=== PATIENT | female | born 1995 | race Caucasian/White ===

== ENCOUNTER 2020-05-22 12:26 | Emergency (ER) | payer MEDICAID ==
[~2020-05-22] VITALS: Ht 160 cm; Wt 56.8 kg
[2020-05-22] MEDS ORDERED: IV NORMAL SALINE 1000ML BAG 1,000 ML IV SCH (13:00)
[2020-05-22] MEDS ORDERED: ONDANSETRON PF 4 MG/2 ML VIAL. IVP ONE (13:00)
[2020-05-22] MEDS ORDERED: fentaNYL PF VIAL 100 MCG/2 ML VIAL IVP ONE ×2 (13:00→14:30)
--- NOTE | 2020-05-22 13:07 | PHYS DOC ---
Past Medical History Past Medical History: Other Additional Past Medical Histor: IBS,ABD HERNIA, Past Surgical History: Appendectomy Smoking Status: Current Every Day Smoker Alcohol Use: None General Adult EDM: Chief Complaint: ABDOMINAL PAIN HPI: HPI: Patient is a 25 year old female who presents with bilateral lower abdominal cramping with diarrhea and chills that started last night. Denies any blood in her stools. Denies vomiting but states she does have some nausea. Rates her pain a 6 out of 10. Patient denies drug use, shortness of breath, chest pain, fever, diarrhea, urinary symptoms, back pain, dizziness, headache, cough. She has a history of IBS, appendectomy, abdominal hernia, smoker. Review of Systems: Review of Systems: Constitutional: Denies fever. + chills. [] Eyes: Denies change in visual acuity. [] HENT: Denies nasal congestion or sore throat. [] Respiratory: Denies cough or shortness of breath. [] Cardiovascular: Denies chest pain or edema. [] GI: + abdominal pain, +nausea, denies vomiting, bloody stools. +diarrhea. [] : Denies dysuria. [] Musculoskeletal: Denies back pain or joint pain. [] Integument: Denies rash. [] Neurologic: Denies headache, focal weakness or sensory changes. [] Endocrine: Denies polyuria or polydipsia. [] Lymphatic: Denies swollen glands. [] Psychiatric: Denies depression or anxiety. [] Heart Score: Risk Factors: Risk Factors: DM, Current or recent (<one month) smoker, HTN, HLP, family history of CAD, obesity. Risk Scores: Score 0 - 3: 2.5% MACE over next 6 weeks - Discharge Home Score 4 - 6: 20.3% MACE over next 6 weeks - Admit for Clinical Observation Score 7 - 10: 72.7% MACE over next 6 weeks - Early Invasive Strategies Current Medications: Current Medications Medications (Trade) Dose Ordered Sig/Rodriguez Start Time Stop Time Status Last Admin Dose Admin Fentanyl Citrate (Fentanyl 2ml Vial) 50 mcg 1X ONCE 05/22/20 13:00 05/22/20 13:04 DC Ondansetron HCl (Zofran) 4 mg 1X ONCE 05/22/20 13:00 05/22/20 13:04 DC Sodium Chloride 1,000 ml @ 1,000 mls/hr Q1H 05/22/20 13:00 05/22/20 13:59 Allergies: Allergies: Allergies Coded Allergies Type Severity Reaction Last Updated Verified Iodinated Contrast Media Allergy Severe Anaphylaxis 05/22/20 Yes Physical Exam: PE: Constitutional: Well developed, well nourished, no acute distress, non-toxic appearance. [] HENT: Normocephalic, atraumatic, bilateral external ears normal, oropharynx moist, no oral exudates, nose normal. [] Eyes: PERRLA, EOMI, conjunctiva normal, no discharge. [] Neck: Normal range of motion, no tenderness, supple, no stridor. [] Cardiovascular:Heart rate regular rhythm, no murmur [] Lungs & Thorax: Bilateral breath sounds clear to auscultation [] Abdomen: Bowel sounds normal, soft, bilateral lower tenderness, no masses, no pulsatile masses. [] Skin: Warm, dry, no erythema, no rash. [] Back: No tenderness, no CVA tenderness. [] Extremities: No tenderness, no cyanosis, no clubbing, ROM intact, no edema. [] Neurologic: Alert and oriented X 3, normal motor function, normal sensory function, no focal deficits noted. [] Psychologic: Affect normal, judgement normal, mood normal. [] Current Patient Data: Vital Signs: Vital Signs Date Time Temp Pulse Resp B/P (MAP) Pulse Ox O2 Delivery O2 Flow Rate FiO2 05/22/20 12:56 97.5 87 18 120/58 (78) 98 Room Air 97.5 EKG: EKG: [] Radiology/Procedures: Radiology/Procedures: [] Impression: [facility] [address] [place], [place] [id number] IMAGING REPORT Signed PATIENT: GARY JONES ACCOUNT: [id number] : 1995 LOCATION: ER AGE: 25 SEX: F EXAM STATUS: REG ER ORD. PHYSICIAN: KISHOR HERNANDEZ APRN REASON: abd pain, diarrhea, nausea, hx ibs PROCEDURE: CT ABDOMEN PELVIS WO CONTRAST CT abdomen and pelvis without contrast PQRS statement: CT scans at this facility use dose reduction including either automated exposure control, iterative reconstructions, and /or weight based radiation dosing via mA and kV modification when appropriate to reduce radiation dose to as low as reasonably achievable. HISTORY: Abdominal pain, diarrhea and nausea. Abdomen findings: 4 mm nodule right lower lobe abutting the diaphragm image 8. 2 mm right middle lobe nodule image 12. Liver, gallbladder, spleen, adrenal glands, pancreas and kidneys are unremarkable. No urinary calculi or hydronephrosis. 3 cm supraumbilical ventral fatty abdominal wall hernia. There is a large volume of stool. Appendectomy. No small bowel obstruction. No inflammatory changes in GI tract. No abdominal fluid. Pelvis findings: Right ovary obscured by pelvic bowel loops. Left ovary, uterus, and bladder are unremarkable. No bladder calculi. Moderate volume of stool within the rectosigmoid. Bones are unremarkable. IMPRESSION: 1. Constipation with a large volume of solid stool throughout the large bowel. 2. The appendix is surgically absent. 3. No urinary calculi. 4. 2 small solid nodules of the right lung base largest measuring 4 mm. If the patient has risk factors for malignancy optional CT follow-up in 12 months would be advised, otherwise no follow-up is necessary. Electronically signed by: Jennifer Rodríguez MD (05/22/2020 2:07 PM) [id number] DICTATED and SIGNED BY: JENNIFER RODRÍGUEZ MD DATE: 05/22/20 [id number] 0 Course & Med Decision Making: Course & Med Decision Making Pertinent Labs and Imaging studies reviewed. (See chart for details) See HPI. Abdomen soft but tender to lower bilateral lower abdominal. Skin pink warm and dry. Ambulatory with steady gait. Speaks in full complete sentences. Vital signs within normal limits. IMPRESSION: 1. Constipation with a large volume of solid stool throughout the large bowel. 2. The appendix is surgically absent. 3. No urinary calculi. 4. 2 small solid nodules of the right lung base largest measuring 4 mm. If the patient has risk factors for malignancy optional CT follow-up in 12 months would be advised, otherwise no follow-up is necessary. Urinalysis shows nitrites. CT shows the above. She is given Rocephin in the ED. She is given another dose of pain medication. She will also be given magnesium citrate for constipation. [] Awilda Disclaimer: Awilda Disclaimer: This electronic medical record was generated, in whole or in part, using a voice recognition dictation system. Departure Departure Impression: Primary Impression: UTI (urinary tract infection) Qualified Codes: N39.0 - Urinary tract infection, site not specified Additional Impressions: Constipation Qualified Codes: K59.00 - Constipation, unspecified Incidental pulmonary nodule Disposition: HOME SELF CARE/HOMELESS Condition: STABLE Referrals: UNKNOWN PCP NAME (PCP) Patient Instructions: Constipation, Adult, Incidental Abnormal Radiological Finding, Urinary Tract Infection Additional Instructions: Follow-up with primary care provider if needed. Drink plenty of fluids. Take medication with food and as prescribed. Take the magnesium citrate tonight when you get home and stay home in your bathroom. Follow-up in the next 6 to 12 months on the pulmonary nodule that is in your right lower lung to make sure does not get any bigger. Stop smoking. Scripts Phenazopyridine Hcl (PYRIDIUM) 100 Mg Tablet 1 TAB PO TID for urinary discomfort for 3 Days, #9 TAB 0 Refills Prov: KISHOR HERNANDEZ [employer] 05/22/20 Ibuprofen (IBUPROFEN) 600 Mg Tablet 600 MG PO PRN Q6HRS PRN for INFLAMMATION, #25 TAB Prov: KISHOR HERNANDEZ [employer] 05/22/20 Magnesium Citrate (MAGNESIUM CITRATE) 296 Ml Solution 296 ML PO ONCE, #296 ML Prov: KISHOR HERNANDEZ [employer] 05/22/20 Cephalexin (KEFLEX) 500 Mg Capsule 1 CAP PO BID for 7 Days, #14 CAP 0 Refills Prov: KISHOR HERNANDEZ [employer] 05/22/20 Ondansetron (ONDANSETRON ODT) 4 Mg Tab.rapdis 1 TAB PO PRN Q6-8HRS, #16 TAB Prov: KISHOR HERNANDEZ 05/22/20 KISHOR HERNANDEZ APRN May 22, 2020 13:07
[2020-05-22 13:28] LABS: BILIRUBIN,URINE NEGATIVE (NEG); CLARITY,URINE CLOUDY; COLOR,URINE YELLOW; NITRITE,URINE POSITIVE (NEG); PH,URINE 5.5 (<5.0-8.0); PROTEIN,URINE 30 mg/dL (NEG-TRACE); UROBILINOGEN,URINE 0.2 mg/dL (0.2 mg/dL)
[2020-05-22 13:32] LABS: U PREG PATIENT NEGATIVE (NEG)
[2020-05-22 13:34] LABS: AMPHETAMINE/METHAMPHETAMINE NEG (NEG); BARBITURATES NEG (NEG); BENZODIAZEPINES NEG (NEG); CANNABINOIDS POS (NEG); COCAINE NEG (NEG); METHADONE NEG (NEG); OPIATES NEG (NEG); PHENCYCLIDINE NEG (NEG)
[2020-05-22 13:35] LABS: BASO # 0.1 x10^3/uL (0.0-0.2); BASO % 1 % (0-3); EOS # 0.2 x10^3/uL (0.0-0.7); EOS % 3 % (0-3); HEMATOCRIT 31.4 % (36.0-47.0); HEMOGLOBIN 9.9 g/dL (12.0-15.5); LYMPH # 1.5 x10^3/uL (1.0-4.8); LYMPH % 22 % (24-48); MEAN CORPUSCULAR HEMOGLOBIN 21 pg (25-35); MEAN CORPUSCULAR HGB CONC 32 g/dL (31-37); MEAN CORPUSCULAR VOLUME 65 fL (79-100); MONO # 0.3 x10^3/uL (0.0-1.1); MONO % 4 % (0-9); NEUT # 4.8 x10^3/uL (1.8-7.7); NEUT % 71 % (31-73); PLATELET COUNT 300 x10^3/uL (140-400); RED BLOOD COUNT 4.82 x10^6/uL (3.50-5.40); RED CELL DISTRIBUTION WIDTH 18.4 % (11.5-14.5); WHITE BLOOD COUNT 6.7 x10^3/uL (4.0-11.0)
[2020-05-22 13:51] LABS: BACTERIA,URINE MANY /HPF (0-FEW); WBC,URINE >40 /HPF (0-4)
[2020-05-22 13:52] LABS: CALCIUM 8.7 mg/dL (8.5-10.1); CREATININE 0.8 mg/dL (0.6-1.0); GFR 86.7; POTASSIUM 3.6 mmol/L (3.5-5.1)
[2020-05-22 13:59] LABS: ALBUMIN 3.6 g/dL (3.4-5.0); ALBUMIN/GLOBULIN RATIO 0.9 (1.0-1.7); TOTAL BILIRUBIN 0.5 mg/dL (0.2-1.0); TOTAL PROTEIN 7.7 g/dL (6.4-8.2)
--- NOTE | 2020-05-22 14:10 | RAD ---
CT abdomen and pelvis without contrast PQRS statement: CT scans at this facility use dose reduction including either automated exposure control, iterative reconstructions, and /or weight based radiation dosing via mA and kV modification when appropriate to reduce radiation dose to as low as reasonably achievable. HISTORY: Abdominal pain, diarrhea and nausea. Abdomen findings: 4 mm nodule right lower lobe abutting the diaphragm image 8. 2 mm right middle lobe nodule image 12. Liver, gallbladder, spleen, adrenal glands, pancreas and kidneys are unremarkable. No urinary calculi or hydronephrosis. 3 cm supraumbilical ventral fatty abdominal wall hernia. There is a large volume of stool. Appendectomy. No small bowel obstruction. No inflammatory changes in GI tract. No abdominal fluid. Pelvis findings: Right ovary obscured by pelvic bowel loops. Left ovary, uterus, and bladder are unremarkable. No bladder calculi. Moderate volume of stool within the rectosigmoid. Bones are unremarkable. IMPRESSION: 1. Constipation with a large volume of solid stool throughout the large bowel. 2. The appendix is surgically absent. 3. No urinary calculi. 4. 2 small solid nodules of the right lung base largest measuring 4 mm. If the patient has risk factors for malignancy optional CT follow-up in 12 months would be advised, otherwise no follow-up is necessary. Electronically signed by: Go Ronquillo MD (05/22/2020 2:07 PM) [id number]
[2020-05-22] MEDS ORDERED: cefTRIAXone IV Push 1 GM VIAL. IVP ONE (14:15)
[2020-05-22] MEDS ORDERED: IV NORMAL SALINE 1000ML BAG 1,000 ML IV ONE (14:15)
[2020-05-22] MEDS ORDERED: CEPH-264 PO (14:18)
[2020-05-22] MEDS ORDERED: MAGN296S68 PO (14:18)
[2020-05-22] MEDS ORDERED: PHEN100T82 PO (14:18)
[2020-05-22] MEDS ORDERED: IBUP-1007 PO (14:18)
[2020-05-22] MEDS ORDERED: ONDA4TAB12 PO (14:18)
[2020-05-22 14:40] VITALS: BP 114/68
[2020-05-22 14:49] LABS: ANISOCYTOSIS SLIGHT; HYPOCHROMIA MARKED; MICROCYTOSIS MARKED; PLT ESTIMATE ADEQUATE (ADEQUATE); POIKILOCYTOSIS SLIGHT
[2020-05-22 14:50] LABS: OVALOCYTES PRESENT
== END 2020-05-22 14:44 | disposition home or self-care (01) ==
LOC: ER 12:26
DX: N39.0 Urinary tract infection, site not specified (principal); K59.00 Constipation, unspecified; K58.9 Irritable bowel syndrome, unspecified; F17.200 Nicotine dependence, unspecified, uncomplicated; Z90.89 Acquired absence of other organs; Z91.041 Radiographic dye allergy status
CPT/HCPCS: 36415; 74176; 80053; 80307; 81001; 81025; 83690; 85025; 87086; 96361; 96374; 96375; 96376; 99284; J0696; J2405; J3010; J7030; 87077; 87186

== ENCOUNTER 2021-03-25 00:15 | Emergency (ER) | payer MEDICAID ==
[~2021-03-25] VITALS: Ht 160 cm; Wt 59.0 kg
[~2021-03-25 00:15] MED LIST: CEPH-264 PO; IBUP-1007 PO; MAGN296S68 PO; ONDA4TAB12 PO; PHEN100T82 PO
[2021-03-25 02:38] LABS: U PREG PATIENT NEGATIVE (NEG)
--- NOTE | 2021-03-25 03:05 | RAD ---
EXAM: 3 views of the right wrist DATE: 03/25/2021 2:45 AM INDICATION: Reason: fall, wrist pain / Spl. Instructions: / History: COMPARISON: No Prior FINDINGS/ IMPRESSION: Acute fracture of the distal radius with cortical disruption dorsally and moderate associated soft ti ssue swelling. Subtle lucency through the dorsal distal ulna is also suspicious for nondisplaced frac ture. Joint spaces are preserved without significant degenerative/proliferative change. No significan t soft tissue swelling. Electronically signed by: Loco Ken MD (03/25/2021 3:02 AM) SINDI
--- NOTE | 2021-03-25 03:07 | RAD ---
EXAM: CT HEAD WITHOUT IV CONTRAST CLINICAL HISTORY: Reason: fall from 8 ft, LOC, neck and back pain / Spl. Instructions: / History: COMPARISON: None. TECHNIQUE: Routine CT of the head without contrast. Soft tissues and bone windows were reviewed. PQRS compliance statement - One or more of the following individualized dose reduction techniques wer e utilized for this study: 1. Automated exposure control 2. Adjustment of the mA and/or kV according to patient size 3. Use of iterative reconstruction technique FINDINGS: There is no evidence of hemorrhage, mass or extra-axial fluid collection. Huertas-white differentiation is maintained with no evidence of edema. There is no mass effect or shift of the intracranial structures. The ventricles, basilar cisterns and cortical sulci are normal in size and configuration for the krish ents stated age. The cerebellum and brainstem are unremarkable. The calvarium demonstrates no evidence of fracture or focal lesion. There is normal aeration of the visualized paranasal sinuses and mastoid air cells. The visualized portions of the orbits are normal. IMPRESSION: No evidence for acute intracranial process. EXAM: CT CERVICAL SPINE WITHOUT IV CONTRAST CLINICAL HISTORY: Reason: fall from 8 ft, LOC, neck and back pain / Spl. Instructions: / History: COMPARISON: None available. TECHNIQUE: Helical CT of the cervical spine was performed. Axial, coronal and sagittal reformatted im ages were also performed. PQRS compliance statement - One or more of the following individualized dose reduction techniques wer e utilized for this study: 1. Automated exposure control 2. Adjustment of the mA and/or kV according to patient size 3. Use of iterative reconstruction technique FINDINGS: Vertebral body heights are preserved. No spondylolisthesis. Intervertebral disc heights are preserved. IMPRESSION: No acute cervical spine fracture or subluxation. Electronically signed by: Loco Ken MD (03/25/2021 3:05 AM) SINDI
--- NOTE | 2021-03-25 03:13 | RAD ---
EXAM: CT Chest, Abdomen and Pelvis without IV contrast CLINICAL HISTORY: Reason: fall from 8 ft, LOC, neck and back pain / Spl. Instructions: / History: COMPARISON: None. TECHNIQUE: Helical CT of the chest, abdomen and pelvis was performed without intravenous contrast. Ax ial, coronal and sagittal reformatted images were generated. ---PQRS compliance statement - One or more of the following individualized dose reduction techniques were utilized for this study: 1. Automated exposure control 2. Adjustment of the mA and/or kV according to patient size 3. Use of iterative reconstruction technique--- FINDINGS: Lack of intravenous contrast limits evaluation of solid organs, vasculature, and lymph nodes. Chest: Visualized thyroid is unremarkable. Prominent axillary lymph nodes likely reactive. No mediastinal or hilar lymphadenopathy. Heart is not enlarged. No pericardial effusion. Dependent opacities bilaterally likely atelectasis. No suspicious lung nodule or mass. Abdomen and Pelvis: No focal liver lesion. Liver is enlarged measuring 18 cm. Gallbladder is normal. No biliary ductal di latation. Spleen is enlarged. Adrenal glands are normal. Pancreas is unremarkable. No focal renal les ion. No hydronephrosis. No hydroureter. Bladder is partially distended but otherwise unremarkable. Th ere has been an appendectomy. Moderate colonic stool content. No small or large bowel dilatation. No bowel obstruction. No abdominal or pelvic lymphadenopathy. No abdominal or pelvic ascites. Small fat- containing periumbilical hernia.. Bones: No aggressive osseous lesion is seen. IMPRESSION: No evidence for acute thoracic, abdominal or pelvic trauma. Moderate colonic stool content. No bowel obstruction. Borderline hepatomegaly. Splenomegaly. Electronically signed by: Loco Ken MD (03/25/2021 3:11 AM) SINDI
--- NOTE | 2021-03-25 03:17 | PHYS DOC ---
Past Medical History Past Medical History: Other Additional Past Medical Histor: IBS,ABD HERNIA, Past Surgical History: Appendectomy, Tonsillectomy Smoking Status: Current Every Day Smoker Alcohol Use: None General Adult EDM: Chief Complaint: MULTIPLE TRAUMA/FALL HPI: HPI: Patient is a 25 year old female who presents with neck pain, back pain, and right wrist pain after a fall from approximately 8 feet. Was leaning against a barrier and toppled over. Did strike her head. Unsure of loss of consciousness. No blood thinning medications. No numbness, tingling, weakness. She does have bruising of her wrist. She is concerned that she did break her wrist. Review of Systems: Review of Systems: Constitutional: Denies fever or chills. [] Eyes: Denies change in visual acuity. [] HENT: Denies nasal congestion or sore throat. [] Respiratory: Denies cough or shortness of breath. [] Cardiovascular: Denies chest pain or edema. [] GI: Denies abdominal pain, nausea, vomiting, bloody stools or diarrhea. [] : Denies dysuria. [] Musculoskeletal: Back pain, neck pain, right wrist pain Integument: Denies rash. [] Neurologic: Denies headache, focal weakness or sensory changes. [] Endocrine: Denies polyuria or polydipsia. [] Lymphatic: Denies swollen glands. [] Psychiatric: Denies depression or anxiety. [] Heart Score: C/O Chest Pain: No Risk Factors: Risk Factors: DM, Current or recent (<one month) smoker, HTN, HLP, family history of CAD, obesity. Risk Scores: Score 0 - 3: 2.5% MACE over next 6 weeks - Discharge Home Score 4 - 6: 20.3% MACE over next 6 weeks - Admit for Clinical Observation Score 7 - 10: 72.7% MACE over next 6 weeks - Early Invasive Strategies Allergies: Allergies: Allergies Coded Allergies Type Severity Reaction Last Updated Verified Iodinated Contrast Media Allergy Severe Anaphylaxis 05/22/20 Yes Physical Exam: PE: Constitutional: Well developed, well nourished, no acute distress, non-toxic appearance. [] HENT: Normocephalic, atraumatic, bilateral external ears normal, oropharynx moist, no oral exudates, nose normal. [] Eyes: PERRLA, EOMI, conjunctiva normal, no discharge. [] Neck: Normal range of motion, no tenderness, supple, no stridor. [] Cardiovascular:Heart rate regular rhythm, no murmur [] Lungs & Thorax: Mild chest wall tenderness to palpation bilaterally. Bilateral breath sounds clear to auscultation [] Abdomen: Bowel sounds normal, soft, no tenderness, no masses, no pulsatile masses. [] Skin: Warm, dry, no erythema, no rash. [] Back: Lumbar and thoracic tenderness to palpation.] Extremities: Right wrist tenderness to palpation. Swelling over the distal radius. Neurovascular intact. Neurologic: Alert and oriented X 3, normal motor function, normal sensory function, no focal deficits noted. [] Psychologic: Affect normal, judgement normal, mood normal. [] Current Patient Data: Labs: Laboratory Tests Test 03/25/21 02:15 Urine Test Negative (NEG) Vital Signs: Vital Signs Date Time Temp Pulse Resp B/P (MAP) Pulse Ox O2 Delivery O2 Flow Rate FiO2 03/25/21 00:57 97.9 96 24 107/75 (86) 100 Room Air 97.9 EKG: EKG: [] Radiology/Procedures: Radiology/Procedures: [] Impression: [facility] [address] [place], [place] [id number] IMAGING REPORT Signed PATIENT: GARY JONES ACCOUNT: [id number] : 1995 LOCATION: ER AGE: 25 SEX: F EXAM STATUS: REG ER ORD. PHYSICIAN: SANDY OLIVARES MD REASON: fall from 8 ft, LOC, neck and back pain PROCEDURE: CT HEAD AND CERVICAL SPINE WO EXAM: CT HEAD WITHOUT IV CONTRAST CLINICAL HISTORY: Reason: fall from 8 ft, LOC, neck and back pain / Spl. Instructions: / History: COMPARISON: None. TECHNIQUE: Routine CT of the head without contrast. Soft tissues and bone windows were reviewed. PQRS compliance statement - One or more of the following individualized dose reduction techniques were utilized for this study: 1. Automated exposure control 2. Adjustment of the mA and/or kV according to patient size 3. Use of iterative reconstruction technique FINDINGS: There is no evidence of hemorrhage, mass or extra-axial fluid collection. Huertas-white differentiation is maintained with no evidence of edema. There is no mass effect or shift of the intracranial structures. The ventricles, basilar cisterns and cortical sulci are normal in size and configuration for the patients stated age. The cerebellum and brainstem are unremarkable. The calvarium demonstrates no evidence of fracture or focal lesion. There is normal aeration of the visualized paranasal sinuses and mastoid air cells. The visualized portions of the orbits are normal. IMPRESSION: No evidence for acute intracranial process. EXAM: CT CERVICAL SPINE WITHOUT IV CONTRAST CLINICAL HISTORY: Reason: fall from 8 ft, LOC, neck and back pain / Spl. Instructions: / History: COMPARISON: None available. TECHNIQUE: Helical CT of the cervical spine was performed. Axial, coronal and sagittal reformatted images were also performed. PQRS compliance statement - One or more of the following individualized dose reduction techniques were utilized for this study: 1. Automated exposure control 2. Adjustment of the mA and/or kV according to patient size 3. Use of iterative reconstruction technique FINDINGS: Vertebral body heights are preserved. No spondylolisthesis. Intervertebral disc heights are preserved. IMPRESSION: No acute cervical spine fracture or subluxation. Electronically signed by: Loco Santana MD (03/25/2021 3:05 AM) [facility] DICT[facility] and SIGNED BY: LOCO SANTANA MD DATE: 03/25/21 [id number] [facility] [address] [place], [place] [id number] IMAGING REPORT Signed PATIENT: GARY JONES ACCOUNT: [id number] : 1995 LOCATION: ER AGE: 25 SEX: F EXAM STATUS: REG ER ORD. PHYSICIAN: SANDY OLIVARES MD REASON: fall from 8 ft, LOC, neck and back pain PROCEDURE: CT CHEST ABDOMEN PELVIS WO EXAM: CT Chest, Abdomen and Pelvis without IV contrast CLINICAL HISTORY: Reason: fall from 8 ft, LOC, neck and back pain / Spl. Instruc tions: / History: COMPARISON: None. TECHNIQUE: Helical CT of the chest, abdomen and pelvis was performed without intravenous contrast. Axial, coronal and sagittal reformatted images were generated. ---PQRS compliance statement - One or more of the following individualized dose reduction techniques were utilized for this study: 1. Automated exposure control 2. Adjustment of the mA and/or kV according to patient size 3. Use of iterative reconstruction technique--- FINDINGS: Lack of intravenous contrast limits evaluation of solid organs, vasculature, and lymph nodes. Chest: Visualized thyroid is unremarkable. Prominent axillary lymph nodes likely reactive. No mediastinal or hilar lymphadenopathy. Heart is not enlarged. No pericardial effusion. Dependent opacities bilaterally likely atelectasis. No suspicious lung nodule or mass. Abdomen and Pelvis: No focal liver lesion. Liver is enlarged measuring 18 cm. Gallbladder is normal. No biliary ductal dilatation. Spleen is enlarged. Adrenal glands are normal. Pancreas is unremarkable. No focal renal lesion. No hydronephrosis. No hydroureter. Bladder is partially distended but otherwise unremarkable. There has been an appendectomy. Moderate colonic stool content. No small or large bowel dilatation. No bowel obstruction. No abdominal or pelvic lymphadenopathy. No abdominal or pelvic ascites. Small fat-containing periumbilical hernia.. Bones: No aggressive osseous lesion is seen. IMPRESSION: No evidence for acute thoracic, abdominal or pelvic trauma. Moderate colonic stool content. No bowel obstruction. Borderline hepatomegaly. Splenomegaly. Electronically signed by: Loco Santana MD (03/25/2021 3:11 AM) [facility] DICTATED and SIGNED BY: LOCO SANTANA MD DATE: 03/25/21 [id number] [facility] [address] [place] [address] IMAGING REPORT Signed PATIENT: GARY JONES ACCOUNT: [id number] : 1995 LOCATION: ER AGE: 25 SEX: F EXAM STATUS: REG ER ORD. PHYSICIAN: SANDY OLIVARES MD REASON: fall, wrist pain PROCEDURE: WRIST 3V RIGHT EXAM: 3 views of the right wrist DATE: 03/25/2021 2:45 AM INDICATION: Reason: fall, wrist pain / Spl. Instructions: / History: COMPARISON: No Prior FINDINGS/ IMPRESSION: Acute fracture of the distal radius with cortical disruption dorsally and moderate associated soft tissue swelling. Subtle lucency through the dorsal distal ulna is also suspicious for nondisplaced fracture. Joint spaces are preserved without significant degenerative/proliferative change. No significant soft tissue swelling. Electronically signed by: Loco Santana MD (03/25/2021 3:02 AM) [facility] DICTATED and SIGNED BY: LOCO SANTANA MD DATE: 03/25/21 [id number] Course & Med Decision Making: Course & Med Decision Making Pertinent Labs and Imaging studies reviewed. (See chart for details) Patient is a 25-year-old female who presents with neck pain, back pain, right wrist pain after falling from approximately [address] head, neck, chest, abdomen, pelvis did not reveal any acute traumatic injuries. Right wrist x-ray shows a distal radius fracture and a question of an ulnar fracture. Nondisplaced. Neurovascular intact. Will be placed in sugar tong splint and provided with orthopedic follow-up. Dragon Disclaimer: Dragon Disclaimer: This electronic medical record was generated, in whole or in part, using a voice recognition dictation system. Departure Departure Impression: Primary Impression: Fracture of right distal radius Disposition: 01 HOME / SELF CARE / HOMELESS Condition: STABLE Referrals: NO PCP (PCP) MIRIAM DAMON DO Call Dr. Daomn's office this morning to schedule follow-up appointment Additional Instructions: You broke your right wrist. You will need to follow-up with an orthopedic doctor. These typically take 6-8 weeks to heal. You will likely need to wear a cast for that time. Please do not get your splint wet, this will deform the splint. Please follow-up with Dr. Damon. Call his office to schedule appointment. For pain tylenol and ibuprofen are best used on a schedule. Please aslternate between the two. -Tylenol 1000 mg every 6 hours (do not exceed 4000 mg in one day) -Ibuprofen 400 mg every 6 hours. Take with food. Do not take for more than 1 week. For pain not controlled by the above you can take: -Oxycodone 5 mg every 4 hours as needed. This is a narcotic medication and can make you tired and impaired. Do not drive or operate machinery while taking oxycodone. It can also make you consitpated so please consider taking docusate and miralax (as directed by over the counter directions) to prevent constipation. Please try to take as little oxycodone as possible and wean yourself off as soon as you are able because it is an addictive medication. Scripts Oxycodone Hcl (OXYCODONE HCL) 5 Mg Capsule 5 MG PO PRN Q4-6HRS PRN for PAIN for 3 Days, #12 TAB 0 Refills Prov: SANDY OLIVARES MD 03/25/21 Ondansetron Hcl (ZOFRAN) 4 Mg Tablet 1 TAB PO PRN Q6-8HRS for nausea, #12 TAB Prov: SANDY OLIVARES MD 03/25/21 SANDY OLIVARES MD Mar 25, 2021 03:17
[2021-03-25] MEDS ORDERED: ONDANSETRON ODT 4 MG TAB.RAPDIS. PO ONE (03:30)
[2021-03-25] MEDS ORDERED: oxyCODONE IR 5 MG TABLET PO ONE (03:30)
[2021-03-25] MEDS ORDERED: ONDA4TAB7 PO (03:35)
[2021-03-25] MEDS ORDERED: OXYC5CAP PO ×3 (03:35→03:46)
[2021-03-25 03:59] VITALS: BP 103/58
== END 2021-03-25 04:06 | disposition home or self-care (01) ==
LOC: ER 00:15
DX: S52.501A Unspecified fracture of the lower end of right radius, initial encounter for closed fracture (principal); M54.2 Cervicalgia; M54.5 Low back pain; M54.6 Pain in thoracic spine; F17.200 Nicotine dependence, unspecified, uncomplicated; Z91.041 Radiographic dye allergy status; W17.89XA Other fall from one level to another, initial encounter; Y93.89 Activity, other specified; Y92.89 Other specified places as the place of occurrence of the external cause; Y99.8 Other external cause status
CPT/HCPCS: 29125; 70450; 71250; 72125; 73110; 74176; 81025; 99285